=== PATIENT | male | born 1995 | race Caucasian/White ===

== ENCOUNTER 2017-09-15 04:35 | Emergency (ER) | payer SELFPAY, MEDICAID ==
[2017-09-15] MEDS: predniSONE 20 MG TAB PO (05:15)
== END 2017-09-15 05:55 | disposition home or self-care (01) ==
LOC: FTE 04:35
DX: L50.9 Urticaria, unspecified (principal); R22.0 Localized swelling, mass and lump, head
CPT/HCPCS: 99283